=== PATIENT | male | born 1980 | race Caucasian/White ===

== ENCOUNTER 2022-10-26 07:38 | Inpatient (IN) | payer OTHER ==
[~2022-10-26] VITALS: Ht 182.8 cm; Wt 147.0 kg
[2022-10-26 07:53] VITALS: BP 138/79
[2022-10-26 08:33] LABS: BASO # 0.1 10*3/uL (0.0-0.1); BASO % 0.4 % (0.0-1.0); EOS # 0.5 10*3/uL (0.0-0.4); EOS % 3.4 % (1.0-4.0); HEMATOCRIT 46.3 % (42.0-52.0); LYMPH # 2.5 10*3/uL (1.3-4.4); LYMPH % 18.3 % (27.0-41.0); MEAN CORPUSCULAR HGB 31.9 pg (27.0-31.0); MEAN CORPUSCULAR HGB CONC 34.3 g/dl (33.0-37.0); MEAN PLATELET VOLUME 8.8 fl (9.6-12.3); MONO # 1.3 10*3/uL (0.1-1.0); NEUT % 67.5 % (47.0-73.0); PLATELET COUNT AUTOMATED 376 10*3/uL (130-400); RED BLOOD COUNT 4.98 10*6/uL (4.50-5.90); WHITE BLOOD COUNT 13.4 10*3/uL (4.8-10.8)
[2022-10-26 08:51] LABS: ALKALINE PHOSPHATASE 57 U/L (46-116); BUN 15 mg/dl (9-23); CHLORIDE 98 mmol/L (98-107); CREATININE 0.89 mg/dL (0.70-1.30); POTASSIUM 4.3 mmol/L (3.4-5.1); SGPT/ALT 49 U/L (10-49); SODIUM 134 mmol/L (136-145); THYROID STIM HORMONE (HS) 3.163 uIU/ml (0.550-4.780); TOTAL PROTEIN 7.6 gm/dL (6.0-8.0)
[2022-10-26 08:56] LABS: BILIRUBIN Negative (Negative); BLOOD Negative (Negative); CLARITY Clear (Clear); COLOR Yellow (Yellow); GLUCOSE Negative (Negative); KETONE Negative (Negative); LEUKO ESTERASE Negative (Negative); NITRITE Negative (Negative)
[2022-10-26 08:57] LABS: ETHYL ALCOHOL < 3.0 mg/dl (<3)
[2022-10-26 09:03] LABS: URINE AMPHETAMINES Negative (1000ng/ml); URINE BARBITURATES Negative (200ng/ml); URINE BENZODIAZEPINES Negative (200ng/ml); URINE CANNABINOIDS (THC) Negative (50ng/ml); URINE COCAINE Negative (300ng/ml); URINE METHADONE Negative (300ng/ml); URINE OPIATES Negative (300ng/ml); URINE PHENCYCLIDINE Negative (25ng/ml)
[2022-10-26 09:10] LABS: EPITHELIAL CELLS 0-2; MUCOUS TRACE; WBC 0-2 wbc/hpf (0-5)
[2022-10-26 19:55] VITALS: BP 133/75
[2022-10-26 20:00] VITALS: BP 133/75
[2022-10-26] MEDS ORDERED: ATORVASTATIN CA40 M1 PO (23:59)
[2022-10-27] VITALS: BP 140/72
[2022-10-27] MEDS ORDERED: ZYRTEC10 M2 PO (00:01)
[2022-10-27] MEDS ORDERED: NEURONTIN300 MG PO (00:02)
[2022-10-27] MEDS ORDERED: AMLODIPINE BESYL5 MG PO (00:04)
[2022-10-27] MEDS ORDERED: LISINOPRIL-HCT1 EACH PO (00:05)
[2022-10-27] MEDS ORDERED: METFORMIN HYDR500 MG PO (00:07)
[2022-10-27] MEDS ORDERED: OMEPRAZOLE MAGN20 MG PO (00:07)
[2022-10-27 08:00] VITALS: BP 144/72
[2022-10-27 12:00] VITALS: BP 145/67
[2022-10-27 16:00] VITALS: BP 141/62
[2022-10-27 20:00] VITALS: BP 129/85
[2022-10-28] VITALS: BP 132/69
[2022-10-28 08:00] VITALS: BP 135/77
[2022-10-28 08:22] LABS: BASO % 0.3 % (0.0-1.0); EOS # 0.5 10*3/uL (0.0-0.4); EOS % 4.8 % (1.0-4.0); HEMATOCRIT 43.5 % (42.0-52.0); LYMPH # 1.5 10*3/uL (1.3-4.4); MEAN CELL VOLUME 95.2 fl (80.0-94.0); MEAN CORPUSCULAR HGB 32.4 pg (27.0-31.0); MEAN PLATELET VOLUME 9.1 fl (9.6-12.3); MONO # 0.9 10*3/uL (0.1-1.0); MONO % 9.4 % (3.0-9.0); NEUT # 6.8 10*3/uL (2.3-7.9); PLATELET COUNT AUTOMATED 281 10*3/uL (130-400); RED BLOOD COUNT 4.57 10*6/uL (4.50-5.90); RED CELL DISTRI WIDTH 12.9 % (0-14.5); WHITE BLOOD COUNT 9.8 10*3/uL (4.8-10.8)
[2022-10-28 08:32] LABS: ALKALINE PHOSPHATASE 51 U/L (46-116); BUN 11 mg/dl (9-23); CHLORIDE 101 mmol/L (98-107); CREATININE 1.01 mg/dL (0.70-1.30); POTASSIUM 4.4 mmol/L (3.4-5.1); SGPT/ALT 86 U/L (10-49); SODIUM 138 mmol/L (136-145)
[2022-10-28 12:00] VITALS: BP 131/67
[2022-10-28 16:00] VITALS: BP 138/65
[2022-10-28 20:00] VITALS: BP 130/69
[2022-10-29] VITALS: BP 123/62
[2022-10-29 08:00] VITALS: BP 145/85
[2022-10-29] MEDS ORDERED: DOXYCYCLINE MO100 MG PO (10:37)
== END 2022-10-29 12:00 | disposition home or self-care (01) | DRG 897 ==
LOC: ED 07:38 → 4E 09:42 → EDHOLD 09:42 → 4E 19:27
PROVIDERS: Family Medicine; Student in an Organized Health Care Education/Training Program; ADMIT Internal Medicine; ATTEND Internal Medicine
DX: F10.230 Alcohol dependence with withdrawal, uncomplicated (principal); E87.1 Hypo-osmolality and hyponatremia; R65.10 Systemic inflammatory response syndrome (SIRS) of non-infectious origin without acute organ dysfunction; L03.818 Cellulitis of other sites; G47.33 Obstructive sleep apnea (adult) (pediatric); I10 Essential (primary) hypertension; E78.5 Hyperlipidemia, unspecified; R74.01 Elevation of levels of liver transaminase levels; F17.210 Nicotine dependence, cigarettes, uncomplicated; E11.9 Type 2 diabetes mellitus without complications; S91.102A Unspecified open wound of left great toe without damage to nail, initial encounter; W18.39XA Other fall on same level, initial encounter; Z82.49 Family history of ischemic heart disease and other diseases of the circulatory system; Z81.1 Family history of alcohol abuse and dependence; Z71.6 Tobacco abuse counseling; Y93.89 Activity, other specified; Y92.89 Other specified places as the place of occurrence of the external cause; Y99.8 Other external cause status